=== PATIENT | female | born 1965 | race Caucasian/White ===

== ENCOUNTER → 2016-07-02 | Outpatient (CLI) | payer OTHER ==
--- NOTE | 2016-07-02 14:29 | MM ---
Reason for exam: clinical finding. Last mammogram was performed 4 years and 10 months ago. History: Patient is postmenopausal. Family history of breast cancer in maternal cousin at age 40. Benign US right guided VAD of the right breast, November 15, 2010. Reductions of both breasts, 2004. Benign core biopsy of the left breast. Indicated problem(s): non-bloody discharge in the right breast. Physical Findings: Nurse did not find any significant physical abnormalities on exam. MG Diagnostic Mammo w CAD KAYLEN Bilateral CC and MLO view(s) were taken. Prior study comparison: August 24, 2011, CAD bilateral diagnostic mammogram. November 15, 2010, right breast diagnostic digital pamella. There are scattered fibroglandular densities. Benign calcifications. There is no discrete abnormality. Stable mass in the right breast. No significant new findings when compared with previous films. These results were verbally communicated with the patient and result sheet given to the patient on 07/02/16. ASSESSMENT: Benign, BI-RAD 2 RECOMMENDATION: Routine screening mammogram of both breasts in 1 year. Manage patient on a clinical basis.
== END | disposition home or self-care (01) ==
LOC: RADMAMWWP 13:33
PROVIDERS: ATTEND Family Medicine
DX: N64.52 Nipple discharge (principal)

== ENCOUNTER → 2016-09-05 | Outpatient (CLI) | payer OTHER ==
--- NOTE | 2016-09-05 12:21 | XR ---
EXAM TYPE: LUMBAR SPINE X RAY SERIES COMPARISON: NONE HISTORY: Back pain TECHNIQUE: 4 views are submitted. FINDINGS: Alignment is anatomic. The pedicles are intact. The transverse processes are intact. \Mild hypertro phic change of the spine. There is a minimal anterolisthesis of L5 on S1 with moderate degenerative d isc disease. Question a spondylolysis unilaterally on the right. IMPRESSION: 1. Degenerative disc disease L5-S1 with findings suspicious for spondylolysis and minimal anterolisth esis. Recommend follow-up MRI.
== END | disposition home or self-care (01) ==
LOC: RADXRMAIN 11:46
PROVIDERS: ATTEND Physician Assistant
DX: M51.37 Other intervertebral disc degeneration, lumbosacral region (principal)
CPT/HCPCS: 72110

== ENCOUNTER → 2016-11-19 | Outpatient (CLI) | payer OTHER ==
--- NOTE | 2016-11-19 23:09 | MR ---
EXAMINATION TYPE: MR brain/cspine wo/w DATE OF EXAM: 11/19/2016 COMPARISON: MRI brain September 17, 2015. MRI cervical spine November 28, 2015. HISTORY: Cervicalgia and memory loss per order. Headaches with burning pain in neck for 30 years caus ing pain or weakness into right arm and fingers per patient. TECHNIQUE: Multiplanar, multisequence images of the cervical spine, brain and brainstem are all performed withou t and with IV contrast, utilizing 7.0 mL intravenous Gadavist . FINDINGS: BRAIN: Diffusion weighted images demonstrate no evidence of a recent infarct or other diffusion abnormality. There is no worrisome extra-axial fluid collection. The ventricular system and cisternal spaces ar e normal in size and appearance. The brain volume is age appropriate. There are scattered foci of T2 hyperintensity seen throughout the white matter bilaterally approximately 40-50 scattered lesions ar e redemonstrated. Lesions are nonspecific in appearance and distribution. No significant change from prior study is identified. Midline structures demonstrate normal morphology. The craniocervical junction appears within normal limits. Post contrast images demonstrate no abnormal enhancement. The dural venous sinuses appear pa tent. The visualized sinuses are clear and the globes are intact. IMPRESSION: Fairly moderate nonspecific white matter changes redemonstrated without significant david e from prior study. No new or enhancing lesions are seen. No significant new finding identified. C-SPINE: Posterior artifact is seen making evaluation suboptimal. FINDINGS: Sagittal images of the cervical spine show the craniocervical junction to appear within nor mal limits. The cervical and upper thoracic spinal cord is normal in course, caliber, and signal. V ertebral alignment is straightened. The vertebral body and intravertebral disk heights are normal. Posterior disc herniation C5-C6 level is redemonstrated on sagittal images effacing anterior thecal s ac. Smaller disc herniations at C3-C4 and C4-C5 level are seen on sagittal images similar to prior. T he bone marrow signal intensity is within normal limits. No significant spurring is seen. Axial images show the C2-C3 level to appear within normal limits. Axial images at C3-C4 level show broad-based left paracentral disc protrusion mildly effacing anterio r thecal sac, bilateral neural foramina are patent. No significant change from prior study is seen. Axial images at C4-C5 level show broad-based left paracentral disc protrusion effacing anterolateral thecal sac, bilateral neural foramina are patent, no significant change from prior study is identifie d. Axial images at C5-C6 level show more prominent broad-based posterior disc protrusion effacing anteri or thecal sac nearly up to ventral surface of spinal cord, there is mild to moderate bilateral left g reater than right neural foraminal narrowing at this level redemonstrated. Axial images at C6-C7 and C7-T1 level are felt within normal limits. There is redemonstration of 1.0 cm left thyroid nodule on axial image 6. IMPRESSION: Straightening of cervical spine with multilevel degenerative changes most prominent at C5 -C6 level, no significant change or progression from prior study. Incidental note is made of stable 1 cm left thyroid nodule, consider thyroid ultrasound follow-up to further evaluate and characterize.
== END | disposition home or self-care (01) ==
LOC: RADMRIMAIN 20:07
PROVIDERS: ATTEND Psychiatry & Neurology Pain Medicine
DX: M47.812 Spondylosis without myelopathy or radiculopathy, cervical region (principal); R41.3 Other amnesia
CPT/HCPCS: 70553; 72156; A9581

== ENCOUNTER → 2017-01-14 | Outpatient (CLI) | payer OTHER ==
--- NOTE | 2017-01-14 16:18 | MR ---
EXAMINATION TYPE: MR lumbar spine wo con DATE OF EXAM: 01/14/2017 3:01 PM COMPARISON: NONE HISTORY: Low back pain Multiplanar, MultiSpin echo imaging of the lumbar spine was performed. L1-L2: Normal disc appearance without desiccation. No herniation, protrusion or disc bulging. No ca nal stenosis is present. Foramina are patent bilaterally. L2-L3: Normal disc appearance without desiccation. No herniation, protrusion or disc bulging. No ca nal stenosis is present. Foramina are patent bilaterally. L3-L4: Mild degenerative disc space narrowing. Posterior disc bulge is mild in degree. Mild effacemen t ventral thecal sac. No evidence of herniation or protrusion. No evidence for central stenosis. L4-L5: Normal disc appearance without desiccation. No herniation, protrusion or disc bulging. No ca nal stenosis is present. Foramina are patent bilaterally. L5-S1: Normal disc appearance without desiccation. No herniation, protrusion or disc bulging. No ca nal stenosis is present. Foramina are patent bilaterally. Lumbar segments are intact. No paraspinal masses are identified. Conus medullaris has a normal appe arance. Mild scattered ventral spondylosis. Small right renal cyst. IMPRESSION: 1. Mild degenerative disc disease and disc bulging at L3-4. Otherwise unremarkable study.
== END | disposition home or self-care (01) ==
LOC: RADMRIMAIN 14:16
PROVIDERS: ATTEND Psychiatry & Neurology Pain Medicine
DX: M51.36 Other intervertebral disc degeneration, lumbar region (principal); M51.26 Other intervertebral disc displacement, lumbar region; Z88.1 Allergy status to other antibiotic agents
CPT/HCPCS: 72148; 76536

== ENCOUNTER → 2017-01-14 | Outpatient (CLI) | payer OTHER ==
--- NOTE | 2017-01-14 16:01 | US ---
EXAMINATION TYPE: US thyroid st tissue head/neck DATE OF EXAM: 01/14/2017 COMPARISON: NONE CLINICAL HISTORY: 51-year-old female E04.1 THYROID NODULE. TECHNIQUE: Multiple sonographic images of the thyroid gland are obtained. FINDINGS: GLAND SIZE: Right Lobe: 4.3 x 1.0 x 1.3 cm Overall Parenchyma: heterogenous Left Lobe: 4.5 x 1.3 x 1.2 cm Overall Parenchyma: heterogeneous Isthmus Thickness: 0.3 cm NODULES RIGHT: # of nodules measured on right: 0 LEFT: # of nodules measured on left: 1 1. 1.4 X 0.7 x 1.0 cm hypoechoic solid nodule at the upper pole with well-defined margins; present with microcalcifications. This nodule is wider than tall and shows intranodular vascularity. Prior size: No previous ISTHMUS: # of nodules measured in the isthmus: 0 Bilateral neck scanned, there is a prominent but nonenlarged lymph node visualized in the right neck measuring 8 x 6 mm and a prominent but nonenlarged lymph nodes node visualized in the left neck measu ring 1.2 x 0.7 cm. IMPRESSION: Solitary 1.4 cm solid nodule in the left lobe. Decision to biopsy should be made on a clinical basis.
== END | disposition home or self-care (01) ==
LOC: RADUSWWP 12:03
PROVIDERS: ATTEND Psychiatry & Neurology Neurology
DX: E04.1 Nontoxic single thyroid nodule (principal)
CPT/HCPCS: 76536

== ENCOUNTER → 2017-04-15 | Outpatient (CLI) | payer OTHER ==
[2017-04-15 20:47] LABS: Total Protein,CSF 48 mg/dL (12-60)
[2017-04-15 20:53] LABS: CSF Tube Number 4
[2017-04-15 20:54] LABS: Appearance,CSF Clear; Nucleated Cells, CSF 1 u/L (0-5); Red Blood Cell,CSF 0 u/L (0-10)
[2017-04-17 14:35] LABS: IgG - CSF 3.8 mg/dL (0.0 - 3.4); IgG/Albumin Index (CSF) 0.48 (0.00 - 0.77)
== END | disposition home or self-care (01) ==
LOC: LABWHC1 12:17
PROVIDERS: ATTEND Psychiatry & Neurology Pain Medicine
DX: G35 Multiple sclerosis (principal); R41.3 Other amnesia; R90.82 White matter disease, unspecified
CPT/HCPCS: 36415; 82040; 82042; 82784; 83873; 83916; 84157; 87476; 88108; 89050

== ENCOUNTER 2017-04-17 12:20 | Day surgery (SDC) | payer OTHER ==
[2017-04-17 12:53] VITALS: RESP 16; TEMP 97.6
[2017-04-17] MEDS ORDERED: ALPRAZolam 0.5 MG TAB PO STA (12:55)
[2017-04-17 14:12] VITALS: BP 111/66; PULSE 76
--- NOTE | 2017-04-17 16:00 | US ---
EXAMINATION TYPE: US FNA thyroid DATE OF EXAM: 04/17/2017 COMPARISON: Previous 02/04/2017 HISTORY: Thyroid nodule. Maximal barrier technique was utilized. After informed consent, skin overlying the left lobe thyroid lesion was localized with ultrasound and the overlying skin prepped and draped. Ultrasound was utili zed using sterile technique. Lidocaine was used for local anesthesia. 4 passes with a 25-gauge needle were made into the nodule and aspirated specimen was submitted to cytology. Following the procedure hemostasis achieved. No immediate complication. The patient discharged in stable condition. IMPRESSION: STATUS POST ULTRASOUND GUIDED FINE NEEDLE ASPIRATION OF THYROID NODULE, PATHOLOGY IS PEND ING. THIS PROCEDURE WAS PERFORMED BY THE UNDERSIGNED.
== END 2017-04-17 14:00 | disposition home or self-care (01) ==
LOC: RADPROMAIN 12:20
PROVIDERS: ATTEND Family Medicine
DX: E04.1 Nontoxic single thyroid nodule (principal)
CPT/HCPCS: 10022; 76942; 88173; 88305

== ENCOUNTER → 2017-09-06 | Outpatient (CLI) | payer OTHER ==
--- NOTE | 2017-09-06 15:03 | XR ---
EXAMINATION TYPE: XR Hip Complete RT DATE OF EXAM: 09/06/2017 COMPARISON: NONE HISTORY: Pain TECHNIQUE: 2 views submitted FINDINGS: There is no evidence of erosive change or acute fracture. Hypertrophic change of the acetabulum noted. Calcifications in the pelvis appear vascular. Mild to mo derate concentric narrowing the joint space. SI joint is patent IMPRESSION: 1. Mild to moderate arthropathy correlate for femoral acetabular impingement.
== END | disposition home or self-care (01) ==
LOC: RADXRYALE 14:47
PROVIDERS: ATTEND Physician Assistant Medical
DX: M16.11 Unilateral primary osteoarthritis, right hip (principal)
CPT/HCPCS: 73502

== ENCOUNTER → 2017-12-10 | Outpatient (CLI) | payer OTHER ==
--- NOTE | 2017-12-10 13:07 | XR ---
Left hip HISTORY: Left hip pain 2 views of the left hip Bone mineralization, joint spaces and alignment are maintained. No fracture or dislocation. Calcifica tion present at the greater trochanter. IMPRESSION: Correlate for calcific tendinitis at the level of the greater trochanter
== END | disposition home or self-care (01) ==
LOC: RADXRYALE 11:43
PROVIDERS: ATTEND Family Medicine
DX: M25.552 Pain in left hip (principal)
CPT/HCPCS: 73502

== ENCOUNTER → 2018-03-06 | Outpatient (CLI) | payer OTHER ==
--- NOTE | 2018-03-06 13:44 | XR ---
EXAMINATION TYPE: XR cervical spine limited DATE OF EXAM: 03/06/2018 COMPARISON: NONE HISTORY: Pain TECHNIQUE: 3 views are submitted. FINDINGS: The odontoid is intact. There are no compression deformities. The prevertebral soft tissue structur es are within normal limits. Moderate degenerative disc disease C4-5 with severe changes at C5-C6. P osterior cervical spondylosis noted. IMPRESSION: 1. Severe degenerative disc disease C5-C6 with posterior spondylosis consider MRI for possible cervic al canal stenosis.
== END | disposition home or self-care (01) ==
LOC: RADXRYALE 11:24
PROVIDERS: ATTEND Family Medicine
DX: M50.322 Other cervical disc degeneration at C5-C6 level (principal); M47.812 Spondylosis without myelopathy or radiculopathy, cervical region
CPT/HCPCS: 72040

== ENCOUNTER → 2018-07-04 | Outpatient (CLI) | payer OTHER ==
--- NOTE | 2018-07-04 14:37 | MR ---
MRI CERVICAL SPINE: CLINICAL HISTORY: Cervicalgia and cervical disc degeneration per order. Headache with neck pain into right arm and fingers for 15 years per patient. TECHNIQUE: Multiplanar, multisequence imaging of the cervical spine is performed without IV contrast. COMPARISON: MRI cervical spine November 19, 2016.. FINDINGS: Sagittal images of the cervical spine show the craniocervical junction to remain within nor mal limits. The cervical and upper thoracic spinal cord remains normal in course, caliber, and signa l. There is persistent stable grade 1 retrolisthesis of C5 on C6. There is mild disc space narrowing C5-C6 redemonstrated. The vertebral body and intravertebral disk heights otherwise are normal. Helmet Binder ior disc herniations are facing anterior thecal sac C4 -C5 and C5-C6 level on sagittal images similar to prior. Some heterogeneous endplate changes with mild/moderate spurring C5-C6 level is noted. Axial images show the C2-C3 level to remain within normal limits. Axial images at C3-C4 level redemonstrated broad-based left paracentral disc protrusion mildly effaci ng anterior thecal sac, bilateral neural foramina remain patent. Axial images at C4-C5 level show more prominent central broad-based disc protrusion effaces the anter ior thecal sac, bilateral neural foramina are patent. No significant change from prior. Axial images at C5-C6 levels with broad-based upper central disc protrusion effacing anterior thecal sac causing mild left greater than right bilateral neural foraminal narrowing. Axial images at C6-C7 and C7-T1 level remain within normal limits. There is stable roughly 8 mm left T2 hyperintense thyroid nodule axial image 7. IMPRESSION: Overall stable findings from most recent MRI. Multilevel degenerative changes most promin ent at C5-C6 level as detailed above.
== END | disposition home or self-care (01) ==
LOC: RADMRIMAIN 13:41
PROVIDERS: ATTEND Family Medicine
DX: M48.02 Spinal stenosis, cervical region (principal); M50.222 Other cervical disc displacement at C5-C6 level
CPT/HCPCS: 72141

== ENCOUNTER → 2018-07-07 | Outpatient (CLI) | payer OTHER ==
--- NOTE | 2018-07-08 11:10 | MM ---
Reason for exam: screening (asymptomatic). Last mammogram was performed 2 years ago. History: Patient is postmenopausal. Family history of breast cancer in maternal cousin at age 40. Benign US right guided VAD of the right breast, November 15, 2010. Reductions of both breasts, 2003. Benign core biopsy of the left breast. Physical Findings: A clinical breast exam by your physician is recommended on an annual basis and results should be correlated with mammographic findings. MG Screening Mammo w CAD Bilateral CC and MLO view(s) were taken. Prior study comparison: July 02, 2016, bilateral MG diagnostic mammo w CAD KAYLEN. There are scattered fibroglandular densities. Previous mammotome biopsy in the right breast. There is chronic nodularity bilaterally. New asymmetric densities on the left. ASSESSMENT: Incomplete: need additional imaging evaluation, BI-RAD 0 RECOMMENDATION: Special view mammogram of the left breast. (3D) If lesion persists on supplemental views, image directed ultrasound is recommended. [facility] will attempt to contact patient to return for supplemental views and ultrasound if indicated.
== END | disposition home or self-care (01) ==
LOC: RADMAMWWP 13:29
PROVIDERS: ATTEND Family Medicine
DX: Z12.31 Encounter for screening mammogram for malignant neoplasm of breast (principal)
CPT/HCPCS: 77067

== ENCOUNTER → 2018-07-14 | Outpatient (CLI) | payer OTHER ==
--- NOTE | 2018-07-15 07:51 | MM ---
Reason for exam: additional evaluation requested from abnormal screening. Last mammogram was performed less than 1 month ago. History: Patient is postmenopausal. Family history of breast cancer in maternal cousin at age 40. Benign US right guided VAD of the right breast, November 15, 2010. Reductions of both breasts, 2003. Benign core biopsy of the left breast. Physical Findings: Nurse did not find any significant physical abnormalities on exam. MG Work Up Mamm w CAD LT Spot compression CC, spot compression MLO, and LM view(s) were taken of the left breast. Prior study comparison: July 07, 2018, bilateral MG screening mammo w CAD. July 02, 2016, bilateral MG diagnostic mammo w CAD KAYLEN. There are scattered fibroglandular densities. Focal asymmetries on the left improve with spot compression. Nodular asymmetry anterior to middle depth left breast on the lateral also appear to disperse. Precautionary 6 month follow up recommended. These results were verbally communicated with the patient and result sheet given to the patient on 07/14/18. ASSESSMENT: Probably benign, BI-RAD 3 RECOMMENDATION: Follow-up diagnostic mammogram of the left breast in 6 months.
== END | disposition home or self-care (01) ==
LOC: RADMAMWWP 14:38
PROVIDERS: ATTEND Family Medicine
DX: R92.8 Other abnormal and inconclusive findings on diagnostic imaging of breast (principal)
CPT/HCPCS: 77065

== ENCOUNTER → 2018-11-13 | Outpatient (CLI) | payer OTHER ==
--- NOTE | 2018-11-13 21:11 | CONS ---
CONSULTATION DATE OF SERVICE: 11/13/2018 53-year-old lady who has been evaluated in the sleep center for possible obstructive sleep apnea-hypopnea syndrome and significant excessive daytime sleepiness. HISTORY OF PRESENT ILLNESS/SLEEP WAKE EVALUATION: SLEEP SCHEDULE: Patient usual sleep schedule on weekdays from 9 p.m. to 6 or 7:30 am and on weekends from 10 p.m. until 9 a.m. FALLING ASLEEP: She does have problem with falling asleep. No TV in bedroom. She sleeps on the back and side position with snoring and awakenings from sleep multiple times about 10 times with 3 episodes of nocturia. DURING THE DAY/SLEEP WAKE EVALUATION: In the morning, patient wakes up tired, has difficulties to pay attention, falling asleep during the day, has problems with memory, concentration, irritability, anxiety, claustrophobia. [place] Sleepiness Scale significantly increased to 18. The patient takes naps around 2:00 pm. Does not feel refreshed after naps, usually does not see dreams during the naps. Occasional dreaming right while falling asleep. Possible hypnagogic hallucinations. Positive history of sleep paralysis with sleep on and sleep off paralysis. PAST MEDICAL HISTORY: Positive for fibromyalgia, neck pain, polyarthritis, and thyroid nodule. PAST SURGICAL HISTORY: Partial hysterectomy, bladder suspension. MEDICATIONS: Motrin, Cymbalta. SOCIAL HISTORY: Positive for smoking for about 20 pack/years; quit 15 years ago. Alcohol consumption none. FAMILY HISTORY: Hyperlipidemia, fibromyalgia, arthritis, headaches, snoring, anemia, restless legs, narcolepsy. REVIEW OF SYSTEMS: Multiple awakenings from sleep, significant excessive daytime sleepiness. PHYSICAL EXAM: lady without distress. BP 104/71, HR 67, RR 16, height 5 feet 2 inches, weight 145 pounds with body mass index 28, temperature 97.9, oxygen saturation at room air 98%. Oropharynx: Low position of soft palate. Neck is 13.5 inches in circumference. Moderately low position of soft palate, Mallampati 2-3. Significant restriction of nasal breathing. Neck Supple, no JVD. Thyroid is not palpable. LUNGS Clear to percussion and to auscultation. Good air exchange. No wheezing or rhonchi. HEART S1, S2 regular. No murmurs, gallops, or rubs. ABDOMEN Soft and nontender. Bowel sounds are present. No organomegaly appreciated. EXTREMITIES No clubbing or cyanosis. ARCHITECTURAL SUPERINTENDENT Awake, alert, and oriented X3. Cranial nerves 2 to 7 intact. There is no fasciculation or atrophy. noted. No focal deficits observed. IMPRESSION: 1. Snoring, multiple awakenings from sleep, significant restriction of nasal breathing; possible obstructive sleep apnea-hypopnea syndrome. 2. Positive history of hypnagogic hallucinations, sleep on and off paralysis, significant excessive daytime sleepiness with [place] Sleepiness Scale of 18, history of narcolepsy in the family. Differential diagnosis include narcolepsy without cataplexy. 3. History of fibromyalgia. 4. Nasal septum deviation with restriction of nasal breathing. 5. Neck pain. 6. History of polyarthritis. 7. Status post partial hysterectomy. 8. Thyroid nodule. 9. Status post bladder suspension. PLAN: 1. Polysomnography for evaluation of patient's breathing during sleep. 2. CPAP/BiPAP titration if sleep study confirms obstructive sleep apnea-hypopnea syndrome. 3. Preferable position during sleep on the side. 4. No driving if patient feels any sleepiness. 5. I will see patient for follow up visit to explain results of testing and following plan. 6. Multiple sleep latency test if the sleep study is negative for obstructive sleep apnea-hypopnea syndrome. Thank you very much for referring this patient for consultation. Sincerely, Jacinto Mckeon MD, PhD, FAASM Diplomat of [place] [employer] [place] [employer] Supervisor of [facility] [place] MMODL / IJN: [id number] /
== END | disposition home or self-care (01) ==
LOC: SLEEP 15:38
PROVIDERS: ATTEND Internal Medicine
DX: G47.8 Other sleep disorders (principal); J34.2 Deviated nasal septum; M54.2 Cervicalgia; E04.1 Nontoxic single thyroid nodule; Z90.710 Acquired absence of both cervix and uterus; Z98.890 Other specified postprocedural states; Z79.1 Long term (current) use of non-steroidal anti-inflammatories (NSAID); Z79.899 Other long term (current) drug therapy; Z86.59 Personal history of other mental and behavioral disorders; Z87.898 Personal history of other specified conditions; Z87.39 Personal history of other diseases of the musculoskeletal system and connective tissue; Z87.891 Personal history of nicotine dependence
CPT/HCPCS: 99211

== ENCOUNTER 2018-11-30 11:19 | Emergency (ER) | payer OTHER ==
[2018-11-30 11:26] VITALS: RESP 18; TEMP 98
[2018-11-30] MEDS ORDERED: HYDROmorphone 0.5 MG/0.5 ML SYRINGE IVP STA ×2 (12:00→16:18)
[2018-11-30] MEDS ORDERED: SODIUM CHLORIDE 0.9% 500 ML 500 ML IV STA (12:00)
[2018-11-30] MEDS ORDERED: ONDANSETRON 4 MG/2 ML VIAL IVP STA ×2 (12:00→18:08)
[2018-11-30 12:32] LABS: Basophils % (A) 0 %; Eosinophils # (A) 0.1 k/uL (0-0.7); Eosinophils % (A) 2 %; HGB 12.9 gm/dL (11.4-16.0); Lymphocytes # (A) 2.7 k/uL (1.0-4.8); Lymphocytes % (A) 32 %; MCH 31.4 pg (25.0-35.0); MCHC 34.8 g/dL (31.0-37.0); MCV 90.2 fL (80.0-100.0); Mean Platelet Volume 7.8; Monocytes # (A) 0.4 k/uL (0-1.0); Monocytes % (A) 5 %; Neutrophils # (A) 5.1 k/uL (1.3-7.7); Neutrophils % (A) 60 %; Platelet Count 343 k/uL (150-450); RBC 4.11 m/uL (3.80-5.40); RDW 12.8 % (11.5-15.5); WBC 8.6 k/uL (3.8-10.6)
[2018-11-30 12:39] LABS: ALT 13 U/L (9-52); AST 21 U/L (14-36); African American GFR (CKD) >90 (>60 ml/min/1.73 sqM); Albumin 4.4 g/dL (3.5-5.0); Alkaline Phosphatase 114 U/L (38-126); Amylase 41 U/L (30-110); Anion Gap 13 mmol/L; Blood Urea Nitrogen 13 mg/dL (7-17); Calcium 11.1 mg/dL (8.4-10.2); Carbon Dioxide 23 mmol/L (22-30); Chloride 104 mmol/L (98-107); Glucose 90 mg/dL (74-99); Potassium 4.5 mmol/L (3.5-5.1); Sodium 140 mmol/L (137-145); Total Bilirubin 0.8 mg/dL (0.2-1.3); Total Protein 7.8 g/dL (6.3-8.2)
[2018-11-30 12:41] LABS: INR 0.9 (<1.2); Partial Thromboplastin Time 24.8 sec (22.0-30.0); Prothrombin Time 9.5 sec (9.0-12.0)
--- NOTE | 2018-11-30 12:49 | ED ---
General Adult HPI - General Chief complaint: Abdominal Pain Stated complaint: Chest pain/sob Time Seen by Provider: 11/30/18 11:42 Source: patient, RN notes reviewed Mode of arrival: wheelchair Limitations: no limitations - History of Present Illness Initial comments: 53-year-old female presents to the emergency department for a chief complaint of right-sided rib and abdominal pain. Patient states that this started yesterday. States it is more intermittent yesterday and is now more constant. States she has felt this pain several times before but usually goes away. States when she takes a deep breath it is painful. Denies nausea vomiting. Denies diarrhea. Denies fevers or chills. Denies any anterior chest pain.Patient has no other complaints at this time including shortness of breath, abdominal pain, nausea or vomiting, headache, or visual changes. - Related Data Home Medications Medication Instructions Recorded Confirmed Ibuprofen [Motrin] 600 mg PO Q6HR PRN MDD pain 01/23/17 04/17/17 Ketorolac [Toradol] 10 mg PO DAILY 01/23/17 04/17/17 Previous Rx's Medication Instructions Recorded Azithromycin [Zithromax Z-pack] 250 mg PO DIRECTED #6 tab 11/30/18 Allergies Allergy/AdvReac Type Severity Reaction Status Date / Time levofloxacin [From Levaquin] Allergy Swelling Verified 11/30/18 11:22 sulfamethoxazole Allergy Rash/Hives Verified 11/30/18 11:22 [From Bactrim] trimethoprim [From Bactrim] Allergy Rash/Hives Verified 11/30/18 11:22 Review of Systems ROS Statement: Those systems with pertinent positive or pertinent negative responses have been documented in the HPI. ROS Other: All systems not noted in ROS Statement are negative. Past Medical History Past Medical History: Thyroid Disorder Additional Past Medical History / Comment(s): DDD of neck History of Any Multi-Drug Resistant Organisms: None Reported Past Surgical History: Breast Surgery, Hysterectomy Past Anesthesia/Blood Transfusion Reactions: No Reported Reaction Past Psychological History: Anxiety Smoking Status: Former smoker Past Alcohol Use History: None Reported Past Drug Use History: Marijuana General Exam Limitations: no limitations General appearance: alert, in no apparent distress Head exam: Present: atraumatic, normocephalic, normal inspection Eye exam: Present: normal appearance, PERRL, EOMI. Absent: scleral icterus, conjunctival injection, periorbital swelling ENT exam: Present: normal exam, mucous membranes moist Neck exam: Present: normal inspection. Absent: tenderness, meningismus, lymphadenopathy Respiratory exam: Present: normal lung sounds bilaterally, chest wall tenderness (R lower anterior rib tenderness). Absent: respiratory distress, wheezes, rales, rhonchi, stridor Cardiovascular Exam: Present: regular rate, normal rhythm, normal heart sounds. Absent: systolic murmur, diastolic murmur, rubs, gallop, clicks GI/Abdominal exam: Present: soft, tenderness (tenderness noted to epigatric and RUQ areas), normal bowel sounds. Absent: distended, guarding, rebound, rigid Neurological exam: Present: alert Psychiatric exam: Present: normal affect, normal mood Course Vital Signs 11/30/18 11/30/18 11/30/18 11:22 11:35 12:00 Temperature 98.0 F Pulse Rate 82 80 Respiratory 18 Rate Blood Pressure 126/82 117/68 O2 Sat by Pulse 100 99 99 Oximetry 11/30/18 11/30/18 11/30/18 12:30 13:00 13:30 Temperature Pulse Rate 79 79 Respiratory Rate Blood Pressure 116/77 105/81 O2 Sat by Pulse 99 81 L Oximetry 11/30/18 11/30/18 11/30/18 14:00 14:30 15:00 Temperature Pulse Rate 76 73 96 Respiratory Rate Blood Pressure 113/71 105/68 106/67 O2 Sat by Pulse 87 L 97 92 L Oximetry 11/30/18 11/30/18 11/30/18 15:30 16:00 16:30 Temperature Pulse Rate 76 79 81 Respiratory Rate Blood Pressure 101/71 112/65 130/75 O2 Sat by Pulse 90 L 98 98 Oximetry EKG Findings - EKG Comments: EKG Findings:: Normal sinus rhythm, ventricular rate 80, NC interval 128, QTc 410 Medical Decision Making - Medical Decision Making 53-year-old female presents for right-sided rib and abdominal pain. This has been consistent since yesterday. Patient has had this pain before but usually goes away. States it hurts when she takes a deep breath. Patient vitals are stable. Patient is 100% on room air. Lungs are clear to auscultation bilate rally. Patient has right upper quadrant epigastric tenderness. CBC CMP unremarkable. Urine is negative. Her ultrasound was initially ordered given tenderness which shows a negative exam. No gallstones or dilated ducts. There is a small liver hemangioma. Chest x-ray was obtained that showed a right basilar atelectasis or infiltrate. CT injury of the chest was ordered which was negative for pulmonary embolism given patient's symptoms of pleuritic chest pain. He states pain is likely secondary to a pneumonia associated with pleurisy. Pain controlled at this time. Patient will be discharged home with pain medications and return if she has any worsening symptoms. - Lab Data Result diagrams: 11/30/18 11:44 11/30/18 11:44 Lab Results 11/30/18 11/30/18 11/30/18 Range/Units 11:44 11:44 11:44 WBC 8.6 (3.8-10.6) k/uL RBC 4.11 (3.80-5.40) m/uL Hgb 12.9 (11.4-16.0) gm/dL Hct 37.0 (34.0-46.0) % MCV 90.2 (80.0-100.0) fL MCH 31.4 (25.0-35.0) pg MCHC 34.8 (31.0-37.0) g/dL RDW 12.8 (11.5-15.5) % Plt Count 343 (150-450) k/uL Neutrophils % 60 % Lymphocytes % 32 % Monocytes % 5 % Eosinophils % 2 % Basophils % 0 % Neutrophils # 5.1 (1.3-7.7) k/uL Lymphocytes # 2.7 (1.0-4.8) k/uL Monocytes # 0.4 (0-1.0) k/uL Eosinophils # 0.1 (0-0.7) k/uL Basophils # 0.0 (0-0.2) k/uL PT (9.0-12.0) sec INR (<1.2) APTT (22.0-30.0) sec Sodium 140 (137-145) mmol/L Potassium 4.5 (3.5-5.1) mmol/L Chloride 104 (98-107) mmol/L Carbon Dioxide 23 (22-30) mmol/L Anion Gap 13 mmol/L BUN 13 (7-17) mg/dL Creatinine 0.57 (0.52-1.04) mg/dL Est GFR (CKD-EPI)AfAm >90 (>60 ml/min/1.73 sqM) Est GFR (CKD-EPI)NonAf >90 (>60 ml/min/1.73 sqM) Glucose 90 (74-99) mg/dL Plasma Lactic Acid Zane 1.4 (0.7-2.0) mmol/L Calcium 11.1 H (8.4-10.2) mg/dL Total Bilirubin 0.8 (0.2-1.3) mg/dL AST 21 (14-36) U/L ALT 13 (9-52) U/L Alkaline Phosphatase 114 (38-126) U/L Troponin I (0.000-0.034) ng/mL Total Protein 7.8 (6.3-8.2) g/dL Albumin 4.4 (3.5-5.0) g/dL Amylase 41 (30-110) U/L Lipase 31 (23-300) U/L Urine Color Urine Appearance (Clear) Urine pH (5.0-8.0) Ur Specific [place] (1.001-1.035) Urine Protein (Negative) Urine Glucose (UA) (Negative) Urine Ketones (Negative) Urine Blood (Negative) Urine Nitrite (Negative) Urine Bilirubin (Negative) Urine Urobilinogen (<2.0) mg/dL Ur Leukocyte Esterase (Negative) 11/30/18 11/30/18 11/30/18 Range/Units 11:44 11:44 14:11 WBC (3.8-10.6) k/uL RBC (3.80-5.40) m/uL Hgb (11.4-16.0) gm/dL Hct (34.0-46.0) % MCV (80.0-100.0) fL MCH (25.0-35.0) pg MCHC (31.0-37.0) g/dL RDW (11.5-15.5) % Plt Count (150-450) k/uL Neutrophils % % Lymphocytes % % Monocytes % % Eosinophils % % Basophils % % Neutrophils # (1.3-7.7) k/uL Lymphocytes # (1.0-4.8) k/uL Monocytes # (0-1.0) k/uL Eosinophils # (0-0.7) k/uL Basophils # (0-0.2) k/uL PT 9.5 (9.0-12.0) sec INR 0.9 (<1.2) APTT 24.8 (22.0-30.0) sec Sodium (137-145) mmol/L Potassium (3.5-5.1) mmol/L Chloride (98-107) mmol/L Carbon Dioxide (22-30) mmol/L Anion Gap mmol/L BUN (7-17) mg/dL Creatinine (0.52-1.04) mg/dL Est GFR (CKD-EPI)AfAm (>60 ml/min/1.73 sqM) Est GFR (CKD-EPI)NonAf (>60 ml/min/1.73 sqM) Glucose (74-99) mg/dL Plasma Lactic Acid Zane (0.7-2.0) mmol/L Calcium (8.4-10.2) mg/dL Total Bilirubin (0.2-1.3) mg/dL AST (14-36) U/L ALT (9-52) U/L Alkaline Phosphatase (38-126) U/L Troponin I <0.012 (0.000-0.034) ng/mL Total Protein (6.3-8.2) g/dL Albumin (3.5-5.0) g/dL Amylase (30-110) U/L Lipase (23-300) U/L Urine Color Colorless Urine Appearance Clear (Clear) Urine pH 7.0 (5.0-8.0) Ur Specific [place] 1.003 (1.001-1.035) Urine Protein Negative (Negative) Urine Glucose (UA) Negative (Negative) Urine Ketones Negative (Negative) Urine Blood Negative (Negative) Urine Nitrite Negative (Negative) Urine Bilirubin Negative (Negative) Urine Urobilinogen <2.0 (<2.0) mg/dL Ur Leukocyte Esterase Negative (Negative) Disposition Clinical Impression: Pneumonia, Pleurisy Disposition: HOME SELF-CARE Condition: Good Instructions (If sedation given, give patient instructions): Pneumonia (ED) Additional Instructions: Take antibiotic as directed. This was prescribed to [facility] in [place]. Please follow-up with primary care in 1-2 days. Please return to the emergency department if you have any worsening symptoms. Prescriptions: Azithromycin [Zithromax Z-pack] 250 mg PO DIRECTED #6 tab Is patient prescribed a controlled substance at d/c from ED?: No Referrals: Liang Donnelly DO [Primary Care Provider] - 1-2 days Time of Disposition: 17:28
[2018-11-30 14:26] LABS: Appearance,Urine Clear (Clear); Bilirubin,Urine Negative (Negative); Blood,Urine Negative (Negative); Color,Urine Colorless; Glucose,Urine (UA) Negative (Negative); Ketones,Urine Negative (Negative); Leukocyte Esterase,Urine Negative (Negative); Nitrite,Urine Negative (Negative); Protein,Urine Negative (Negative); Specific Gravity,Urine 1.003 (1.001-1.035); Urobilinogen,Urine <2.0 mg/dL (<2.0)
--- NOTE | 2018-11-30 14:27 | XR ---
EXAMINATION TYPE: XR chest 2V DATE OF EXAM: 11/30/2018 COMPARISON: NONE TECHNIQUE: PA and lateral views submitted. HISTORY: Pain FINDINGS: Subsegmental consolidation right lung base. Left lung clear. No pneumothorax or overt failure. Heart size normal. IMPRESSION: 1. Right basilar atelectasis or infiltrate.
--- NOTE | 2018-11-30 14:28 | XR ---
EXAMINATION TYPE: XR KUB DATE OF EXAM: 11/30/2018 COMPARISON: NONE HISTORY: Pain TECHNIQUE: One view abdominal series FINDINGS: The osseous structures are intact. The bowel gas pattern is nonspecific. Subsegmental changes at the right lung base. There are occasional air-fluid levels throughout the abdomen. Arthropathy of the hi ps.. IMPRESSION: 1. Nonspecific abdomen. Correlate for ileus or enteritis.
--- NOTE | 2018-11-30 14:43 | US ---
Limited abdominal sonogram. History right upper quadrant pain. Comparison none. FINDINGS: There is a sonolucent gallbladder. There is no wall thickening. The bile ducts are not dilated. Commo n bile duct is 3 mm. Liver shows a hyperechoic 1.5 cm focus adjacent to the right kidney that is prob ably a hemangioma. There is no ascites. There is no sign of pancreatic mass. IMPRESSION: Negative exam. No gallstones or dilated ducts. Small hemangioma.
--- NOTE | 2018-11-30 17:12 | CT ---
EXAMINATION TYPE: CT angio chest DATE OF EXAM: 11/30/2018 4:53 PM COMPARISON: None HISTORY: RUQ and chest pain CT DLP: 314.8 mGycm Automated exposure control for dose reduction was used. CONTRAST: CTA scan of the thorax is performed with IV Contrast, patient injected with 100 mL of Isovue 370, pul monary embolism protocol. There are 3-D post processed images.. FINDINGS: The lungs are clear of infiltrate. There is no pleural effusion. There is no mediastinal adenopathy. Are no hilar masses. Heart size is normal. There is no pericardial effusion. Thoracic aorta is intact there is no aneurysm or dissection. There is normal contrast opacification o f the pulmonary arteries. There are no filling defects. The bony thorax is intact. IMPRESSION: NEGATIVE CT ANGIOGRAM OF THE CHEST. NO EVIDENCE OF PULMONARY EMBOLISM.
[2018-11-30] MEDS ORDERED: cefTRIAXone IN SWFI 1,000 MG/10 ML SYRINGE IVP STA (17:29)
[2018-11-30 18:23] VITALS: BP 117/66; PULSE 71
== END 2018-11-30 18:46 | disposition home or self-care (01) ==
LOC: EC 11:19
DX: J18.9 Pneumonia, unspecified organism (principal); D18.03 Hemangioma of intra-abdominal structures; R10.9 Unspecified abdominal pain; Z87.891 Personal history of nicotine dependence; Z88.1 Allergy status to other antibiotic agents; Z88.2 Allergy status to sulfonamides; Z79.1 Long term (current) use of non-steroidal anti-inflammatories (NSAID); Z87.39 Personal history of other diseases of the musculoskeletal system and connective tissue
CPT/HCPCS: 36415; 93005; 80053; 82150; 83605; 83690; 84484; 85025; 85610; 85730; 81003; 71046; 74018; 76705; 71275; 99285; 96374; 96375 ×2; 96376 ×2; 96361 ×6; J2405; J0696; J1170; Q9967

== ENCOUNTER → 2019-03-10 | Outpatient (CLI) | payer OTHER ==
--- NOTE | 2019-03-10 08:28 | US ---
EXAMINATION TYPE: US carotid duplex BILAT DATE OF EXAM: 03/10/2019 COMPARISON: NONE CLINICAL HISTORY: R42 dizziness. No HTN, no hx tia EXAM MEASUREMENTS: RIGHT: Peak Systolic Velocity (PSV) cm/sec ----- Right CCA: 57.5 ----- Right ICA: 103.4 ----- Right ECA: 72.4 ICA/CCA ratio: 1.8 RIGHT: End Diastole cm/sec ----- Right CCA: 22.6 ----- Right ICA: 50.3 ----- Right ECA: 17.5 LEFT: Peak Systolic Velocity (PSV) cm/sec ----- Left CCA: 74.6 ----- Left ICA: 99.5 ----- Left ECA: 57.5 ICA/CCA ratio: 1.3 LEFT: End Diastole cm/sec ----- Left CCA: 27.4 ----- Left ICA: 46.5 ----- Left ECA: 11.3 VERTEBRALS (direction of flow): Right Vertebral: Antegrade Left Vertebral: Antegrade Rhythm: Normal Bilateral wall thickening. No elevated velocities or significant stenosis. No plaque visualized. IMPRESSION: Mild degree of grayscale atheromatous plaquing with no sonographically evident hemodynam ically significant stenosis within either visualized carotid arterial system. Criteria for Assigning % of Stenosis / Diameter reduction (Estimation based on the indirect measurements of the internal carotid artery velocities (ICA PSV). 1. Normal (no stenosis)=ICA PSV < 125 cm/s: ratio < 2.0: ICA EDV<40 cm/s. 2. Less than 50% stenosis=ICA PSV < 125 cm/s: ratio < 2.0: ICA EDV<40 cm/s. 3. 50 to 69% stenosis=ICA PSV of 125 to 230 cm/s: ration 2.0 ? 4.0: ICA EDV 40-100 cm/s. 4. Greater than 70% stenosis to near occlusion= ICA PSV > 230 cm/s: ratio > 4.0: ICA EDV > 100 cm/s. 5. Near occlusion= ICA PSV velocities may be low or undetectable: variable ratio and ICA EDV. 6. Total occlusion=unable to detect flow.
== END | disposition home or self-care (01) ==
LOC: RADUSWWP 07:27
PROVIDERS: ATTEND Psychiatry & Neurology Neurology
DX: I65.23 Occlusion and stenosis of bilateral carotid arteries (principal)
CPT/HCPCS: 93880

== ENCOUNTER → 2019-03-19 | Outpatient (CLI) | payer OTHER ==
--- NOTE | 2019-03-20 07:29 | US ---
EXAMINATION TYPE: US thyroid st tissue head/neck DATE OF EXAM: 03/19/2019 COMPARISON: 01/14/2017 CLINICAL HISTORY: E04.1 nontoxic single thyroid nodule. Left thyroid nodule GLAND SIZE: Right Lobe: 4.0 x 1.2 x 1.5 cm Overall Parenchyma: homogenous Left Lobe: 4.6 x 1.3 x 1.3 cm Overall Parenchyma: homogeneous Isthmus Thickness: 0.3 cm NODULES RIGHT: # of nodules measured on right: 0 LEFT: # of nodules measured on left: 1 1. 1.5 X 0.7 x 1.0 cm hypoechoic solid nodule at the upper pole with well-defined margins. This nod ule is wider than tall and shows intranodular vascularity. Prior size: 1.4 x 0.7 x 1.0 cm ISTHMUS: # of nodules measured in the isthmus: 0 Bilateral neck scanned, no evidence of lymphadenopathy. IMPRESSION: Similar size of the solitary left thyroid nodule with no significant interval growth.
== END | disposition home or self-care (01) ==
LOC: RADUSWWP 15:51
PROVIDERS: ATTEND Family Medicine
DX: E04.1 Nontoxic single thyroid nodule (principal)
CPT/HCPCS: 76536

== ENCOUNTER → 2019-07-06 | Outpatient (CLI) | payer OTHER ==
--- NOTE | 2019-07-06 16:23 | XR ---
EXAMINATION TYPE: XR finger LT DATE OF EXAM: 07/06/2019 CLINICAL HISTORY: pain TECHNIQUE: 3 views of the left for digit are submitted. COMPARISON: None FINDINGS: No displaced fracture is seen with certainty. Severe degenerative narrowing involving the P IP joint left fourth digit with osseous irregularity and bony fragmentation of felt to be related to underlying osteoarthritis. Soft tissue swelling noted. IMPRESSION: No acute displaced fracture or dislocation.
== END | disposition home or self-care (01) ==
LOC: RADXRYALE 15:57
PROVIDERS: ATTEND Physician Assistant Medical
DX: M79.645 Pain in left finger(s) (principal)

== ENCOUNTER → 2019-10-06 | Outpatient (CLI) | payer OTHER ==
--- NOTE | 2019-10-06 18:56 | XR ---
EXAMINATION TYPE: XR ankle complete LT DATE OF EXAM: 10/06/2019 CLINICAL HISTORY: Left ankle pain and swelling after fall injury a few days ago. TECHNIQUE: Frontal, lateral and oblique images of the left ankle are obtained. COMPARISON: None. FINDINGS: There is no acute fracture/dislocation evident in the left ankle. The ankle mortise appea rs within normal limits. The overlying soft tissue appears unremarkable. IMPRESSION: There is no acute fracture or dislocation in the left ankle.
== END | disposition home or self-care (01) ==
LOC: RADXRYALE 16:45
PROVIDERS: ATTEND Family Medicine
DX: S90.912A Unspecified superficial injury of left ankle, initial encounter (principal)

== ENCOUNTER → 2019-11-25 | Outpatient (CLI) | payer OTHER ==
--- NOTE | 2019-11-26 10:53 | XR ---
Left foot and left ankle HISTORY: Pain, trauma one month prior 3 views of the left foot and 3 views of the left ankle are submitted. Bone mineralization, joint spaces and alignment are maintained. IMPRESSION: No fracture or dislocation of the left foot or ankle
== END | disposition home or self-care (01) ==
LOC: RADXRYALE 16:00
PROVIDERS: ATTEND Physician Assistant Medical
DX: M25.572 Pain in left ankle and joints of left foot (principal)

== ENCOUNTER 2020-04-11 08:01 | Day surgery (SDC) | payer OTHER ==
[2020-04-11 08:31] VITALS: TEMP 97.4
[2020-04-11 10:27] VITALS: RESP 16
[2020-04-11 10:28] VITALS: BP 120/76; PULSE 74
--- NOTE | 2020-04-11 12:05 | US ---
EXAMINATION TYPE: US thyroid st tissue head/neck DATE OF EXAM: 04/11/2020 COMPARISON: NONE CLINICAL HISTORY: [id number] nontoxic single thyroid nodule. GLAND SIZE: Right Lobe: 5.2 x 0.9 x 1.6 cm Overall Parenchyma: homogenous Left Lobe: 4.1 x 1.5 x 1.3 cm Overall Parenchyma: homogeneous Isthmus Thickness: 0.2 cm NODULES RIGHT: # of nodules measured on right: subcentimeter nodule is indeterminate due to small size LEFT: # of nodules measured on left: 1 1. 1.6 X 0.8 x 1.1 cm solid or almost completely solid, hypoechoic nodule, which is wider than tall , with smooth margins, with echogenic foci. Prior size: 1.5 X 0.7 x 1.0cm ISTHMUS: # of nodules measured in the isthmus: 0 Bilateral neck scanned, no evidence of lymphadenopathy. IMPRESSION: Moderately suspicious, fine needle aspiration suggested left thyroid nodule 2017 ACR TI-RADS LEVEL: 4 *Highest TI-RADS level nodule reported
--- NOTE | 2020-04-11 13:16 | US ---
EXAMINATION TYPE: US FNA thyroid first lesion DATE OF EXAM: 04/11/2020 COMPARISON: Ultrasound 04/11/2020 HISTORY: Thyroid nodule. Maximal barrier technique was utilized. After informed consent, skin overlying the left lobe thyroid nodule was localized with ultrasound and the overlying skin prepped and draped. Ultrasound was utili zed using sterile technique. Lidocaine was used for local anesthesia. Five passes with a 25-gauge ne edle were made into the the left nodule and aspirated specimen was submitted to cytology. Following the procedure hemostasis achieved. No immediate complication. The patient discharged in stable cond ition. IMPRESSION: STATUS POST ULTRASOUND GUIDED FINE NEEDLE ASPIRATION OF THYROID NODULE, PATHOLOGY IS PEND ING. THIS PROCEDURE WAS PERFORMED BY THE UNDERSIGNED.
== END 2020-04-11 10:25 | disposition home or self-care (01) ==
LOC: RADPROMAIN 08:01
PROVIDERS: ATTEND Family Medicine
DX: E04.1 Nontoxic single thyroid nodule (principal)
CPT/HCPCS: 10005; 76536; 88173; 88305

== ENCOUNTER → 2020-07-18 | Outpatient (CLI) | payer OTHER ==
--- NOTE | 2020-07-18 15:48 | XR ---
Left foot HISTORY: Pain 3 views the left foot, comparison prior exam November 25, 2019 Degenerative change present metatarsophalangeal joint of the first digit. impression: No fracture or dislocation.
== END | disposition home or self-care (01) ==
LOC: RADXRYALE 15:12
PROVIDERS: ATTEND Physician Assistant Medical
DX: M79.672 Pain in left foot (principal)

== ENCOUNTER 2020-10-19 16:42 | Emergency (ER) | payer OTHER ==
[2020-10-19 16:55] VITALS: RESP 18; TEMP 98.7
[2020-10-19] MEDS ORDERED: SODIUM CHLORIDE 0.9% 1,000 ML IV STA (17:16)
--- NOTE | 2020-10-19 17:19 | ED ---
General Adult HPI - General Chief complaint: Weakness Stated complaint: weakness Time Seen by Provider: 10/19/20 17:05 Source: patient, EMS Mode of arrival: EMS Limitations: no limitations - History of Present Illness Initial comments: Paty 55-year-old female who presents to the emergency department today for evaluation of headache, facial tingling and near-syncope. Patient reports that she's been watching her grandkids throughout the morning. She stood up from sitting and began to feel somewhat lightheaded. The sensation persisted for approximately 2 hours. Did not improve when she sat down. She began to feel like her face was getting tingly so she decided to come to the ER for evaluation. Denies any recent illness fevers or chills. He difficulty in walking. Denies any slurred speech. - Related Data Home Medications Medication Instructions Recorded Confirmed Ibuprofen [Motrin] 600 mg PO Q6HR PRN MDD pain 01/23/17 04/08/20 DULoxetine HCL [Cymbalta] 30 mg PO BID 04/08/20 04/08/20 Allergies Allergy/AdvReac Type Severity Reaction Status Date / Time levofloxacin [From Levaquin] Allergy Swelling Verified 10/19/20 16:55 sulfamethoxazole Allergy Rash/Hives Verified 10/19/20 16:55 [From Bactrim] trimethoprim [From Bactrim] Allergy Rash/Hives Verified 10/19/20 16:55 Review of Systems ROS Statement: Those systems with pertinent positive or pertinent negative responses have been documented in the HPI. ROS Other: All systems not noted in ROS Statement are negative. 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 History of Any Multi-Drug Resistant Organisms: None Reported Past Surgical History: Breast Surgery, Hysterectomy Past Anesthesia/Blood Transfusion Reactions: No Reported Reaction Past Psychological History: Anxiety Past Alcohol Use History: None Reported Past Drug Use History: Marijuana General Exam - General Exam Comments Initial Comments: Physical Exam GENERAL: Patient is well-developed and well-nourished. Patient is nontoxic and well- hydrated and is in no distress. HENT: Normocephalic, Atraumatic. EYES: PERRL, EOMI PULMONARY: Unlabored respirations. No audible rales rhonchi or wheezing was noted. CARDIOVASCULAR: There is a regular rate and rhythm without any murmurs gallops or rubs. ABDOMEN: Soft and nontender with normal bowel sounds. SKIN: Skin is clear with no lesions or rashes and otherwise unremarkable. : Deferred NEUROLOGIC: Cranial nerves II through XII are grossly intact NIH 0 Patient is alert and oriented x3. Moving all extremities spontaneously MUSCULOSKELETAL: Normal extremities with adequate strength and full range of motion. No lower extremity swelling or edema. No calf tenderness. PSYCHIATRIC: Normal psychiatric evaluation. Limitations: no limitations Course Vital Signs 10/19/20 10/19/20 16:44 18:35 Temperature 98.7 F Pulse Rate 74 86 Respiratory 18 18 Rate Blood Pressure 124/114 106/79 O2 Sat by Pulse 96 94 L Oximetry Medical Decision Making - Medical Decision Making Patient was seen and evaluated history was obtained from the patient, patient was presenting with lightheadedness and tingling in her left face. Physical exam is unremarkable, NIH is 0 Labs and imaging were obtained, no acute abnormalities are identified Patient received 1 L of IV fluid she states she was able to walk to radiology into the restroom without any symptoms she is feeling much better at this time vision be comfortable plan for discharge home - Lab Data Result diagrams: 10/19/20 17:14 10/19/20 17:14 Lab Results 10/19/20 10/19/20 10/19/20 Range/Units 17:14 17:14 17:14 WBC 7.5 (3.8-10.6) k/uL RBC 4.00 (3.80-5.40) m/uL Hgb 12.6 (11.4-16.0) gm/dL Hct 38.8 (34.0-46.0) % MCV 97.0 (80.0-100.0) fL MCH 31.5 (25.0-35.0) pg MCHC 32.5 (31.0-37.0) g/dL RDW 13.3 (11.5-15.5) % Plt Count 307 (150-450) k/uL MPV 8.4 Neutrophils % 46 % Lymphocytes % 43 % Monocytes % 6 % Eosinophils % 3 % Basophils % 1 % Neutrophils # 3.4 (1.3-7.7) k/uL Lymphocytes # 3.2 (1.0-4.8) k/uL Monocytes # 0.4 (0-1.0) k/uL Eosinophils # 0.2 (0-0.7) k/uL Basophils # 0.0 (0-0.2) k/uL PT 9.8 (9.0-12.0) sec INR 0.9 (<1.2) APTT 20.8 L (22.0-30.0) sec D-Dimer 0.26 (<0.60) mg/L FEU Sodium 141 (137-145) mmol/L Potassium 3.9 (3.5-5.1) mmol/L Chloride 110 H (98-107) mmol/L Carbon Dioxide 22 (22-30) mmol/L Anion Gap 9 mmol/L BUN 13 (7-17) mg/dL Creatinine 0.62 (0.52-1.04) mg/dL Est GFR (CKD-EPI)AfAm >90 (>60 ml/min/1.73 sqM) Est GFR (CKD-EPI)NonAf >90 (>60 ml/min/1.73 sqM) Glucose 93 (74-99) mg/dL Calcium 9.4 (8.4-10.2) mg/dL Magnesium 2.0 (1.6-2.3) mg/dL Total Bilirubin 0.5 (0.2-1.3) mg/dL AST 27 (14-36) U/L ALT 15 (4-34) U/L Alkaline Phosphatase 120 (38-126) U/L Troponin I (0.000-0.034) ng/mL Total Protein 7.2 (6.3-8.2) g/dL Albumin 4.3 (3.5-5.0) g/dL Urine Color Urine Appearance (Clear) Urine pH (5.0-8.0) Ur Specific [place] (1.001-1.035) Urine Protein (Negative) Urine Glucose (UA) (Negative) Urine Ketones (Negative) Urine Blood (Negative) Urine Nitrite (Negative) Urine Bilirubin (Negative) Urine Urobilinogen (<2.0) mg/dL Ur Leukocyte Esterase (Negative) Urine RBC (0-5) /hpf Urine WBC (0-5) /hpf Ur Squamous Epith Cells (0-4) /hpf Urine Mucus (None) /hpf 10/19/20 10/19/20 Range/Units 17:14 17:29 WBC (3.8-10.6) k/uL RBC (3.80-5.40) m/uL Hgb (11.4-16.0) gm/dL Hct (34.0-46.0) % MCV (80.0-100.0) fL MCH (25.0-35.0) pg MCHC (31.0-37.0) g/dL RDW (11.5-15.5) % Plt Count (150-450) k/uL MPV Neutrophils % % Lymphocytes % % Monocytes % % Eosinophils % % Basophils % % Neutrophils # (1.3-7.7) k/uL Lymphocytes # (1.0-4.8) k/uL Monocytes # (0-1.0) k/uL Eosinophils # (0-0.7) k/uL Basophils # (0-0.2) k/uL PT (9.0-12.0) sec INR (<1.2) APTT (22.0-30.0) sec D-Dimer (<0.60) mg/L FEU Sodium (137-145) mmol/L Potassium (3.5-5.1) mmol/L Chloride (98-107) mmol/L Carbon Dioxide (22-30) mmol/L Anion Gap mmol/L BUN (7-17) mg/dL Creatinine (0.52-1.04) mg/dL Est GFR (CKD-EPI)AfAm (>60 ml/min/1.73 sqM) Est GFR (CKD-EPI)NonAf (>60 ml/min/1.73 sqM) Glucose (74-99) mg/dL Calcium (8.4-10.2) mg/dL Magnesium (1.6-2.3) mg/dL Total Bilirubin (0.2-1.3) mg/dL AST (14-36) U/L ALT (4-34) U/L Alkaline Phosphatase (38-126) U/L Troponin I <0.012 (0.000-0.034) ng/mL Total Protein (6.3-8.2) g/dL Albumin (3.5-5.0) g/dL Urine Color Light Yellow Urine Appearance Clear (Clear) Urine pH 5.5 (5.0-8.0) Ur Specific [place] 1.013 (1.001-1.035) Urine Protein Negative (Negative) Urine Glucose (UA) Negative (Negative) Urine Ketones Negative (Negative) Urine Blood Small H (Negative) Urine Nitrite Negative (Negative) Urine Bilirubin Negative (Negative) Urine Urobilinogen <2.0 (<2.0) mg/dL Ur Leukocyte Esterase Negative (Negative) Urine RBC 3 (0-5) /hpf Urine WBC <1 (0-5) /hpf Ur Squamous Epith Cells <1 (0-4) /hpf Urine Mucus Rare H (None) /hpf - EKG Data -: EKG Interpreted by Me EKG Comments: EKG was obtained due to near syncope, EKG obtained at 1714, rate 69 rhythm sinus there is a normal axis there are normal intervals VT 1:30 QRS 70 QTC 439 there are no acute ST elevations or depressions there is no evidence of ischemia or infarction. Disposition Clinical Impression: Near syncope Disposition: HOME SELF-CARE Condition: Serious Instructions (If sedation given, give patient instructions): Near Syncope (ED) Is patient prescribed a controlled substance at d/c from ED?: No Referrals: Liang Donnelly DO [Primary Care Provider] - 1-2 days
[2020-10-19 17:28] LABS: Basophils % (A) 1 %; Eosinophils # (A) 0.2 k/uL (0-0.7); Eosinophils % (A) 3 %; HCT 38.8 % (34.0-46.0); HGB 12.6 gm/dL (11.4-16.0); Lymphocytes # (A) 3.2 k/uL (1.0-4.8); Lymphocytes % (A) 43 %; MCH 31.5 pg (25.0-35.0); MCHC 32.5 g/dL (31.0-37.0); Mean Platelet Volume 8.4; Monocytes # (A) 0.4 k/uL (0-1.0); Monocytes % (A) 6 %; Neutrophils # (A) 3.4 k/uL (1.3-7.7); Neutrophils % (A) 46 %; Platelet Count 307 k/uL (150-450); RDW 13.3 % (11.5-15.5); WBC 7.5 k/uL (3.8-10.6)
[2020-10-19 17:40] LABS: ALT 15 U/L (4-34); AST 27 U/L (14-36); African American GFR (CKD) >90 (>60 ml/min/1.73 sqM); Albumin 4.3 g/dL (3.5-5.0); Alkaline Phosphatase 120 U/L (38-126); Anion Gap 9 mmol/L; Blood Urea Nitrogen 13 mg/dL (7-17); Calcium 9.4 mg/dL (8.4-10.2); Carbon Dioxide 22 mmol/L (22-30); Chloride 110 mmol/L (98-107); Glucose 93 mg/dL (74-99); Non-African American GFR(CKD) >90 (>60 ml/min/1.73 sqM); Potassium 3.9 mmol/L (3.5-5.1); Sodium 141 mmol/L (137-145); Total Bilirubin 0.5 mg/dL (0.2-1.3); Total Protein 7.2 g/dL (6.3-8.2)
[2020-10-19 17:44] LABS: Appearance,Urine Clear (Clear); Bilirubin,Urine Negative (Negative); Blood,Urine Small (Negative); Color,Urine Light Yellow; Glucose,Urine (UA) Negative (Negative); Ketones,Urine Negative (Negative); Leukocyte Esterase,Urine Negative (Negative); Mucus,Urine Rare /hpf; Nitrite,Urine Negative (Negative); PH, Urine 5.5 (5.0-8.0); Protein,Urine Negative (Negative); RBC,Urine 3 /hpf (0-5); Specific Gravity,Urine 1.013 (1.001-1.035); Squamous Epithelial Cell,Urine <1 /hpf (0-4); Urobilinogen,Urine <2.0 mg/dL (<2.0); WBC,Urine <1 /hpf (0-5)
[2020-10-19 17:54] LABS: INR 0.9 (<1.2); Partial Thromboplastin Time 20.8 sec (22.0-30.0); Prothrombin Time 9.8 sec (9.0-12.0)
--- NOTE | 2020-10-19 18:08 | CT ---
EXAMINATION TYPE: CT brain wo con DATE OF EXAM: 10/19/2020 COMPARISON: None HISTORY: Syncope, dizziness, left lower facial numbness. CT DLP: 1080.4 mGycm Automated exposure control for dose reduction was used. Ventricles have normal size. There is no mass effect nor midline shift. There is no sign of intracran ial hemorrhage. Calvarium is intact. There is normal aeration of the mastoid sinuses. IMPRESSION: Negative CT scan of the brain.
--- NOTE | 2020-10-19 18:26 | XR ---
EXAMINATION TYPE: XR chest 2V DATE OF EXAM: 10/19/2020 COMPARISON: 11/30/2018 HISTORY: Syncope TECHNIQUE: FINDINGS: Heart and mediastinum are normal. Lungs are clear. Diaphragm is normal. Bony thorax appears normal. IMPRESSION: Normal chest. No adverse change.
[2020-10-19 19:31] VITALS: BP 114/75; PULSE 90
== END 2020-10-19 19:31 | disposition home or self-care (01) ==
LOC: EC 16:42
DX: R55 Syncope and collapse (principal); R53.1 Weakness; R51.9 Headache, unspecified; R20.2 Paresthesia of skin; R26.2 Difficulty in walking, not elsewhere classified; M79.7 Fibromyalgia; F41.9 Anxiety disorder, unspecified; F12.90 Cannabis use, unspecified, uncomplicated; Z79.1 Long term (current) use of non-steroidal anti-inflammatories (NSAID); Z88.1 Allergy status to other antibiotic agents; Z88.2 Allergy status to sulfonamides
CPT/HCPCS: 36415; 70450; 71046; 80053; 81001; 83735; 84484; 85025; 85379; 85610; 85730; 93005; 96360; 99285

== ENCOUNTER → 2020-10-24 | Outpatient (CLI) | payer OTHER ==
--- NOTE | 2020-10-24 14:28 | XR ---
EXAMINATION TYPE: XR knee complete RT DATE OF EXAM: 10/24/2020 COMPARISON: NONE HISTORY: Pain TECHNIQUE: Three views are submitted. FINDINGS: Diffuse osteopenia with narrowing of the medial compartment of the knee and patellofemoral joint.. No erosive changes. Osseous structures are intact. No acute fracture seen. IMPRESSION: 1. Mild diffuse osteopenia with mild changes of osteoarthritis.
== END | disposition home or self-care (01) ==
LOC: RADXRYALE 14:09
PROVIDERS: ATTEND Physician Assistant Medical
DX: M17.11 Unilateral primary osteoarthritis, right knee (principal); M85.80 Other specified disorders of bone density and structure, unspecified site

== ENCOUNTER → 2020-12-30 | Outpatient (CLI) | payer OTHER ==
--- NOTE | 2020-12-30 10:05 | MM ---
Reason for exam: additional evaluation requested from prior study. Last mammogram was performed 2 years and 6 months ago. History: Patient is postmenopausal. Family history of breast cancer in maternal cousin at age 40. Benign US right guided VAD of the right breast, November 15, 2010. Reductions of both breasts, 2003. Benign core biopsy of the left breast. Physical Findings: Nurse did not find any significant physical abnormalities on exam. MG Diagnostic Mammo w CAD KAYLEN Bilateral CC and MLO view(s) were taken. Prior study comparison: July 07, 2018, bilateral MG screening mammo w CAD. July 02, 2016, bilateral MG diagnostic mammo w CAD KAYLEN. There are scattered fibroglandular densities. Previous mammotome biopsy in the right breast. There is chronic nodularity bilaterally. Focal asymmetry right 12 o'clock posterior, stable. No significant new findings when compared with previous films. These results were verbally communicated with the patient and result sheet given to the patient on 12/30/20. ASSESSMENT: Benign, BI-RAD 2 RECOMMENDATION: Routine screening mammogram of both breasts in 1 year.
== END | disposition home or self-care (01) ==
LOC: RADMAMWWP 07:58
PROVIDERS: ATTEND Family Medicine
DX: N64.89 Other specified disorders of breast (principal); Z80.3 Family history of malignant neoplasm of breast; Z78.0 Asymptomatic menopausal state
CPT/HCPCS: 77066

== ENCOUNTER → 2021-03-02 | Outpatient (CLI) | payer OTHER ==
--- NOTE | 2021-03-02 15:05 | XR ---
EXAMINATION TYPE: XR hand complete RT DATE OF EXAM: 03/02/2021 COMPARISON: NONE HISTORY: pain TECHNIQUE: Three views are submitted. FINDINGS: Severe arthropathy of the DIP joint of the fourth and fifth digits with possible erosive osteoarthrit is of the fifth DIP joint. Mild narrowing at remaining DIP, and PIP joints. The joint spaces are pres erved and there is no acute fracture or dislocation. IMPRESSION: 1. Arthropathy.
== END | disposition home or self-care (01) ==
LOC: RADXRYALE 14:12
PROVIDERS: ATTEND Physician Assistant
DX: M79.644 Pain in right finger(s) (principal)

== ENCOUNTER → 2021-06-28 | Outpatient (CLI) | payer OTHER ==
--- NOTE | 2021-06-29 10:16 | XR ---
EXAMINATION TYPE: XR chest 2V DATE OF EXAM: 06/28/2021 COMPARISON: Chest x-ray 10/19/2020 HISTORY: Pruritus, L299 TECHNIQUE: Frontal and lateral views of the chest are obtained. FINDINGS: There is no focal air space opacity, pleural effusion, or pneumothorax seen. The cardiac silhouette size is within normal limits. The osseous structures are intact. IMPRESSION: No acute cardiopulmonary process.
== END | disposition home or self-care (01) ==
LOC: RADXRYALE 14:17
PROVIDERS: ATTEND Physician Assistant
DX: L29.9 Pruritus, unspecified (principal)
CPT/HCPCS: 71046

== ENCOUNTER → 2022-03-21 | Outpatient (CLI) | payer OTHER ==
--- NOTE | 2022-03-21 15:58 | US ---
EXAMINATION TYPE: US thyroid st tissue head/neck DATE OF EXAM: 03/21/2022 COMPARISON: US 04/11/2020, ultrasound FNA thyroid lesion 04/11/2020. CLINICAL HISTORY: E07.9 Disorder of thyroid. F/U nodule GLAND SIZE: Right Lobe: 4.2 x 1.1 x 1.1 cm Overall Parenchyma: heterogenous Left Lobe: 4.3 x 1.4 x 1.5 cm Overall Parenchyma: heterogeneous Isthmus Thickness: 0.2 cm NODULES RIGHT: # of nodules measured on right: 0 LEFT: # of nodules measured on left: 1 1. 1.2 X 0.7 x 1.0 cm, upper, solid or almost completely solid, hypoechoic nodule, which is wider t begum tall, with smooth margins, without echogenic foci. Prior size: 1.6 x 0.8 x 1.1 cm ISTHMUS: # of nodules measured in the isthmus: 0 Bilateral neck scanned, two lymph nodes visualized left lateral neck 1)= 1.4 x 0.4 x 0.4 cm 2)= 1.6 x 0.4 x 0.3 cm. These are prominent but not enlarged, likely reactive. Stable nodule left thyroid. IMPRESSION: Stable to marginally decreased in size of left thyroid lobe hypoechoic nodule which was previously bi opsied. No new suspicious thyroid nodules.
== END | disposition home or self-care (01) ==
LOC: RADUSWWP 15:10
PROVIDERS: ATTEND Family Medicine
DX: E04.1 Nontoxic single thyroid nodule (principal); E07.9 Disorder of thyroid, unspecified
CPT/HCPCS: 76536